=== PATIENT | male | born 1970 | race Asian ===

== ENCOUNTER 2017-07-19 08:19 | Outpatient (CLI) | payer OTHER ==
--- NOTE | 2017-07-19 10:37 | MRI Report ---
EXAM: MRI LUMBAR SPINE WITHOUT CONTRAST EXAM DATE: 07/19/2017 09:12 AM. CLINICAL HISTORY: Low back pain with radicular pain. Numbness to left dorsum. COMPARISON: None. TECHNIQUE: Multiplanar, multisequence T1-weighted and fluid-sensitive sequences of the lumbar spine f rom T12 to S1 without contrast. Other: None. FINDINGS: Spinal Cord: The conus terminates at T12. The conus medullaris and cauda equina are unremarkable. Alignment: Normal. No scoliosis or spondylolisthesis. Bone Marrow: Five [id number] lumbar vertebral bodies are assumed. No gross fractures or bone les ions. No bone marrow edema. Disk Levels/Facets: T12-L1: Unremarkable. L1-L2: Unremarkable. L2-L3: Unremarkable. L3-L4: Unremarkable. L4-L5: Mild broad-based disk bulge. Prominent facets and ligamentum flavum. No central or foraminal s tenosis. L5-S1: Some disk dehydration, broad-based disk bulge. Far left lateral annular tear and focal disk ex trusion comes into direct contact with the exiting left L5 root and the neural foramen on series 401 image 4. On the right side, small disk osteophyte complex is present and there is mild to moderate fo raminal stenosis. No central stenosis is seen. Prominent facets and ligamentum flavum. Musculature: Normal. No edema or fatty atrophy. Other: None. IMPRESSION: 1. Spinal cord, bones and marrow, and paraspinous soft tissues appear unremarkable. 2. L4-L5 shows a mild broad-based disk bulge and prominent facets. No central or foraminal stenosis. 3. L5-S1 shows some disk dehydration, broad-based bulge and far left lateral annular tear with a foca l disk extrusion coming into direct contact with exiting left L5 root with some deformity. On the rig ht side, there is a small disk osteophyte complex with mild to moderate foraminal stenosis. No centra l stenosis. Comment: The following findings are so common in adults without low back pain that while we report th eir presence, they must be interpreted with caution and in the context of the clinical situation. (Re cristian Read et al, Spine 2001) Prevalence of findings in patients without low back pain: Disk degeneration (any evidence): 92% Disk desiccation/T2 signal loss: 83% Disk height loss: 56% Disk bulge: 64% Disk protrusion: 32% Annular tear/high intensity zone: 38% [facility] Referring Provider Line: [phone] SITE ID: [id number]
--- NOTE | 2017-07-19 10:39 | MRI Report ---
EXAM: MRI SACRUM/SI JOINTS WITHOUT CONTRAST EXAM DATE: 07/19/2017 09:38 AM. CLINICAL HISTORY: Low back pain with radicular pain. Numbness to left dorsum. COMPARISON: None. TECHNIQUE: Multiplanar, multisequence T1-weighted and fluid-sensitive sequences of the sacrum/sacroil iac joints without contrast. Other: None. FINDINGS: Bones: There is normal alignment of the sacrum and coccyx. No fractures or subluxations. No marrow ed yo or bone lesions. Sacroiliac Joints: No effusion or sacroiliitis. Symphysis Pubis: Unremarkable. Musculature: No edema or fatty atrophy. Piriformis appears normal and symmetric bilaterally. Neurologic Structures: The sacral neural foramina are patent, and the sacral nerve roots have normal signal intensity. The visualized sciatic nerves are unremarkable. Pelvic Cavity: The visualized bowel, bladder, and reproductive organs are unremarkable. No lymphadeno parmjit. No free fluid in the pelvis. Other: No bursitis. The subcutaneous tissues are unremarkable. IMPRESSION: No MRI abnormalities in the sacrum/SI joints. Presacral soft tissues appear unremarkable. Sciatic notch bilaterally also is unremarkable. [facility] MUSCULOSKELETAL RADIOLOGY SECTION Referring Provider Line: [phone] SITE ID: [id number]
== END 2017-07-19 08:20 | disposition home or self-care (01) ==
LOC: DI 08:19
PROVIDERS: ATTEND Nurse Practitioner Family
DX: M51.16 Intervertebral disc disorders with radiculopathy, lumbar region (principal)
CPT/HCPCS: 72148; 72195